=== PATIENT | female | born 1935 | race Caucasian/White ===

== ENCOUNTER 2018-12-14 10:52 | Emergency (ER) | payer MEDICARE ==
[~2018-12-14] VITALS: Ht 152.4 cm; Wt 68.2 kg
[~2018-12-14 10:52] MED LIST: ALBU8.5H5 INH; AMOX1TAB64 PO; ASPI325T17 PO; FLUT1DIS3 INH; HYDR-3241 PO; HYDR25TA6 PO; IPRA0.2S35 INH; METF850T10 PO; OMEP20TA62 PO; ONDA4TAB10 PO; POTA10TA31 PO
--- NOTE | 2018-12-14 11:10 | NUR ---
THIS IS A 83 YO FEMALE COMING IN FOR TROUBLE BREATHING AND WEAKNESS X1 WEEK. PATIENT WAS SEEN AT [facility] TWO DAYS AGO, THEY SENT HER HOME WITH A Z PAC, NAD IRON FOR LOW HGB. PT STATES SYMPTOMS HAVE NOT RESOLVED. PATIENT STATES THAT IT SOB WORSENS WHEN LAYING DOWN, NO CHEST PAIN, "TIGHTNESS IN LUNGS". PATIENT HAS HX OF COPD AND ASHTMA. PATIENT STATES THAT SHE LOST HER 7 MONTHS AGO AND HAS NOT BEEN EATING WELL. PATIENT PLACED ON CONTINUOUS SPO2 AT 97%, CYCLE BP Q1HR. PATIENT PROVIDED WITH CALL LIGHT AND WARM BLANKET.
--- NOTE | 2018-12-14 11:29 | NUR ---
PT IN XRAY
--- NOTE | 2018-12-14 11:33 | NUR ---
PT BACK FROM XRAY, PLACED BACK ON CONTINUOUS SPO2, CYCLE BP, AND PHYSIATRIST.
--- NOTE | 2018-12-14 11:33 | NUR ---
NSR ON CASING TESTER
[2018-12-14 11:36] LABS: BASOPHILS # (AUTO) 0.06 x10^3/uL (0-0.1); BASOPHILS % (AUTO) 1 % (0-1); EOSINOPHILS # (AUTO) 0.04 x10^3/uL (0-0.4); EOSINOPHILS % (AUTO) 0 % (1-7); LYMPHOCYTES # (AUTO) 1.42 x10^3/uL (1-3.4); LYMPHOCYTES % (AUTO) 13 % (22-44); MD NO; MEAN CORPUSCULAR HEMOGLOBIN 22.1 pg (27.0-34.8); MEAN CORPUSCULAR HGB CONC 30.6 g/dL (32.4-35.8); MEAN CORPUSCULAR VOLUME 72.2 fL (80-100); MEAN PLATELET VOLUME 6.9 fL (7.4-10.4); MONOCYTES # (AUTO) 0.55 x10^3/uL (0.2-0.8); MONOCYTES % (AUTO) 5 % (2-9); NEUTROPHILS # (AUTO) 8.85 x10^3/uL (1.8-6.8); NEUTROPHILS % (AUTO) 81 % (42-75); PLATELET COUNT 420 x10^3/uL (130-400); RED BLOOD COUNT 3.84 x10^6/uL (3.82-5.3); RED CELL DISTRIBUTION WIDTH 19.8 % (9.6-15.2)
[2018-12-14] MEDS ORDERED: IRON1TAB60 PO (11:39)
[2018-12-14 11:46] LABS: ALANINE AMINOTRANSFERASE 17 U/L (12-78); ALBUMIN 3.5 g/dL (3.4-5.0); ANION GAP 9 mmol/L (5-15); CALCIUM 8.4 mg/dL (8.5-10.1); CHLORIDE 103 mmol/L (98-107); CREATININE 1.78 mg/dL (0.55-1.02)
[2018-12-14 11:51] LABS: ALKALINE PHOSPHATASE 50 U/L (45-117); BILIRUBIN,TOTAL 0.3 mg/dL (0.2-1.0); TOTAL PROTEIN 7.4 g/dL (6.4-8.2); TROPONIN I < 0.015 ng/mL (0.000-0.045)
[2018-12-14 12:29] VITALS: BP 126/50
--- NOTE | 2018-12-14 12:30 | NUR ---
Patient/Caregiver given discharge instructions and they have confirmed that they understand the instructions. Patient ambulatory with steady gait.
== END 2018-12-14 12:35 | disposition home or self-care (01) ==
LOC: ED 11:53
DX: J44.1 Chronic obstructive pulmonary disease with (acute) exacerbation (principal); I10 Essential (primary) hypertension; E11.9 Type 2 diabetes mellitus without complications
CPT/HCPCS: 36415; 71046; 80053; 83880; 84484; 85025; 93005; 99284; J7512